=== PATIENT | male | born 1990 | race Two or more races ===

== ENCOUNTER 2022-10-23 03:51 | Emergency (ER) | payer SELFPAY ==
[2022-10-23 04:07] VITALS: BMI 26.6
[2022-10-23] MEDS ORDERED: LACTATED RINGERS SOLUTION 1000 ML INFUS.BAG IV ONE (04:40)
[2022-10-23] MEDS ORDERED: LORazepam 2 MG TABLET PO ONE (04:41)
[2022-10-23] MEDS ORDERED: LORazepam 1 MG TABLET ONE (04:44)
[2022-10-23 04:58] LABS: OPIATES, URI NEGATIVE (NEGATIVE)
[2022-10-23 04:59] LABS: METHADONE, UR NEGATIVE (NEGATIVE); PHENCYCLIDINE,URINE NEGATIVE (NEGATIVE); URINE BENZODIAZEPINES NEGATIVE (NEGATIVE)
[2022-10-23 05:02] LABS: COCAINE, UR POSITIVE (NEGATIVE); URINE AMPHETAMINES NEGATIVE (NEGATIVE); URINE BARBITURATES NEGATIVE (NEGATIVE)
[2022-10-23 05:03] LABS: BASO % 2.8 % (0-2.0); EOS % 0.3 % (0-4.5); HEMOGLOBIN 15.3 GM/dL (11.7-16.9); LYMPH % 19.4 % (8-40); MCH 33.3 pg (25.7-33.7); MCHC 34.1 g/dl (32.0-35.9); MEAN CELL VOLUME 97.7 fl (80-96); MEAN PLT VOLUME 10.9 fl (7.5-11.1); MONO % 9.5 % (3.8-10.2); PLATELET COUNT 116 10^3/uL (134-434); WHITE BLOOD COUNT 10.7 K/mm3 (4.0-10.0)
[2022-10-23 05:08] LABS: CALCIUM 8.2 mg/dL (8.5-10.1)
[2022-10-23 05:09] LABS: ALBUMIN 3.9 g/dl (3.4-5.0); BLOOD UREA NITROGEN 3.6 mg/dL (7-18)
[2022-10-23 05:12] LABS: CREATININE 0.6 mg/dL (0.55-1.3)
[2022-10-23 05:13] LABS: BILIRUBIN,TOTAL 0.8 mg/dL (0.2-1); TOT PROT 8.7 g/dl (6.4-8.2)
[2022-10-23] MEDS ORDERED: diazePAM CARPU-JECT 10 MG/2 ML DISP.SYRIN IVPUSH ONE (05:16)
[2022-10-23] MEDS ORDERED: diazePAM CARPU-JECT 10 MG/2 ML DISP.SYRIN ONE (05:37)
[2022-10-23 10:57] VITALS: BP 130/77; PULSE 100; RESP 18; TEMP 98.4
== END 2022-10-23 10:57 | disposition home or self-care (01) ==
LOC: JER 03:51
PROC: 3E033NZ Introduction of Analgesics, Hypnotics, Sedatives into Peripheral Vein, Percutaneous Approach (ICD-10-PCS; principal; 2022-10-23)
DX: R00.0 Tachycardia, unspecified (principal); F10.180 Alcohol abuse with alcohol-induced anxiety disorder
CPT/HCPCS: 0241U-QW; 36415; 71046-TC-FY; 80053; 80307; 84484; 85025; 93005; 93010; 99285-25